=== PATIENT | male | born 1975 | race Caucasian/White ===

== ENCOUNTER 2020-08-18 12:43 | Emergency (ER) | payer SELFPAY ==
[2020-08-18] MEDS ORDERED: IBUPROFEN 800 MG TABLET PO ONE (13:44)
--- NOTE | 2020-08-18 13:50 | ER Document Report ---
ED Medical Screen (RME) - General Chief Complaint: Leg Pain Stated Complaint: LEG PAIN Time Seen by Provider: 08/18/20 13:36 TRAVEL OUTSIDE OF THE [place] IN LAST 30 DAYS: No - HPI Notes: 08/18/20 13:47 45 year old male presents to the emergency room from [facility] for evaluation of right leg swelling, warmth to touch and redness that has become progressively worse over the last 4 days. Patient denies any trauma. Reports right knee pain and right calf pain states sometimes the pain radiates to his right hip. Denies any recent surgeries, periods of immobilization with car rides or plane flights, factor V, history of blood clots, treatment for cancer. Is not tried any [id number]-[id number] medications. Reports pain is 4 out of 5, throbbing cramping and constant. Patient states he had a been on a riding lawn more for long periods of time over the weekend. Is not on any blood thinners. Denies taking any everyday medications. Patient reports he does have a history of 6 herniated disc. States he did take 1 of his 's hydrocodone and this did help with his pain. Denies any chest pain shortness of breath, nausea vomiting, fevers or chills I have greeted and performed a rapid initial assessment of this patient. A comprehensive ED assessment and evaluation of the patient, analysis of test results and completion of the medical decision making process will be conducted by additional ED providers. PHYSICAL EXAMINATION: GENERAL: Well-appearing, well-nourished and in no acute distress. CV: s1, s2 regular LUNGS: No respiratory distress Musculoskeletal: Normal range of motion. Right lower extremity distal pulses +2, scant swelling by comparison to left lower extremity. Full motor and sensory function to bilateral lower extremities equally. NEUROLOGICAL: Normal speech, normal gait. SKIN: Warm, Dry, normal turgor, no rashes or lesions noted. - Related Data Allergies/Adverse Reactions: No Known Allergies Allergy (Verified 08/18/20 13:36) Past Medical History - Social History Chew tobacco use (# tins/day): No Frequency of alcohol use: Rare Infectious Medical History: Denies: Hx MRSA - Immunizations Hx Diphtheria, Pertussis, Tetanus Vaccination: Yes - 07/2011 Physical Exam - Vital signs Vitals: Temp Pulse Resp BP Pulse Ox 98.3 F 96 16 138/69 H 98 08/18/20 13:03 08/18/20 13:03 08/18/20 13:03 08/18/20 13:03 08/18/20 13:03 Course - Vital Signs Vital signs: Temp Pulse Resp BP Pulse Ox 98.3 F 96 16 138/69 H 98 08/18/20 13:03 08/18/20 13:03 08/18/20 13:03 08/18/20 13:03 08/18/20 13:03
[2020-08-18 14:19] LABS: ABSOLUTE BASOPHILS # (AUTO) 0.1 10^3/uL (0.0-0.2); ABSOLUTE EOSINOPHILS # (AUTO) 0.6 10^3/uL (0.0-0.6); ABSOLUTE LYMPHOCYTES (AUTO) 2.7 10^3/uL (0.5-4.7); ABSOLUTE MONOCYTES (AUTO) 0.9 10^3/uL (0.1-1.4); ABSOLUTE NEUT (AUTO) 7.8 10^3/uL (1.7-8.2); BASOPHILS % (AUTO) 0.5 % (0-2); EOSINOPHILS % (AUTO) 4.9 % (0-6); HEMATOCRIT 48.4 % (37.9-51.0); HEMOGLOBIN 16.8 g/dL (13.5-17.0); LYMPHOCYTES % (AUTO) 22.3 % (13-45); MEAN CORPUSCULAR HEMOGLOBIN 30.7 pg (27.0-33.4); MEAN CORPUSCULAR HGB CONC 34.8 g/dL (32.0-36.0); MEAN CORPUSCULAR VOLUME 88 fl (80-97); MONOCYTES % (AUTO) 7.2 % (3-13); PLATELET COUNT 234 10^3/uL (150-450); RED BLOOD COUNT 5.49 10^6/uL (4.35-5.55); RED CELL DISTRIBUTION WIDTH 14.1 % (11.5-14.0); SEGMENTED NEUTROPHILS % (AUTO) 65.1 % (42-78); TOTAL CELLS COUNTED % (AUTO) 100 %
--- NOTE | 2020-08-18 14:36 | RADIOLOGY REPORT (SQ) ---
EXAM DESCRIPTION: KNEE RIGHT 4 VIEWS IMAGES COMPLETED DATE/TIME: 08/18/2020 2:27 pm REASON FOR STUDY: right knee pain x 4 days COMPARISON: None. NUMBER OF VIEWS: Four views. TECHNIQUE: AP, lateral, and both oblique radiographic images acquired of the right knee. LIMITATIONS: None. FINDINGS: MINERALIZATION: Normal. BONES: No acute fracture or dislocation. No worrisome bone lesions. No significant osteophytes. JOINT: No effusion. No chondrocalcinosis. OTHER: No other significant finding. IMPRESSION: NEGATIVE STUDY OF THE RIGHT KNEE. NO EXPLANATION FOR PAIN. TECHNICAL DOCUMENTATION: JOB ID: [id number] 2010 [employer]- All Rights Reserved Reading location - IP/workstation name: [email or web address]
[2020-08-18 14:37] LABS: ANION GAP 9 (5-19); BLOOD UREA NITROGEN 7 mg/dL (7-20); CALCIUM 9.5 mg/dL (8.4-10.2); CARBON DIOXIDE 27 mmol/L (22-30); CHLORIDE 103 mmol/L (98-107); GLUCOSE 101 mg/dL (75-110); POTASSIUM 4.7 mmol/L (3.6-5.0)
[2020-08-18] MEDS ORDERED: MORPHINE SULFATE 10 MG/ML INJ IM ONE (16:17)
[2020-08-18] MEDS ORDERED: ONDANSETRON 4 MG TAB.RAPDIS PO ONE (16:18)
--- NOTE | 2020-08-18 16:27 | ER Document Report ---
ED General - General Chief Complaint: Leg Pain Stated Complaint: LEG PAIN Time Seen by Provider: 08/18/20 13:36 Mode of Arrival: Ambulatory Information source: Patient Notes: Patient is a 45-year-old male coming in today chief complaint of atraumatic right lower extremity pain especially around his knee. States the pain is been present for the past 4 days. Sharp in nature. Worse with movement and weight-bearing. Occasional mild precordial chest pain which is intermittent and rare. No shortness of breath. No history of thromboembolic events in the past. Not have any blood dyscrasias to his knowledge. 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 No recent surgeries. No immobilization. No trauma. TRAVEL OUTSIDE OF THE [place] IN LAST 30 DAYS: No - Related Data Allergies/Adverse Reactions: No Known Allergies Allergy (Verified 08/18/20 13:36) Past Medical History - Social History Smoking Status: Current Every Day Smoker Chew tobacco use (# tins/day): No Frequency of alcohol use: Rare Family History: Arthritis, CAD, CVA, Hyperlipidemia, Hypertension Patient has homicidal ideation: No Infectious Medical History: Denies: Hx MRSA - Immunizations Hx Diphtheria, Pertussis, Tetanus Vaccination: Yes - 07/2011 Review of Systems - Review of Systems Notes: Constitutional: No fevers. No chills. EENT: No eye redness. No eye pain. No ear pain. No sore throat. Cardiovascular: Positive rare, intermittent chest pain. No palpitations. Respiratory: No cough. No shortness of breath. No respiratory distress. Gastrointestinal: No abdominal pain. No nausea, vomiting, or diarrhea. Genitourinary: Atraumatic. No lesions. No pain. No discharge. Musculoskeletal: Positive for swelling and pain in the right lower extremity Skin: No rash or lesions. Lymphatic: No swollen lymph nodes. Neurologic: No headache. No syncope. Psychiatric: No suicidal or homicidal ideation. Physical Exam - Vital signs Vitals: Temp Pulse Resp BP Pulse Ox 98.3 F 96 16 138/69 H 98 08/18/20 13:03 08/18/20 13:03 08/18/20 13:03 08/18/20 13:03 08/18/20 13:03 - Notes Notes: General: Well-developed, well-nourished. In no acute distress. Non-toxic appearing. Cardiac: Well-perfused. Regular rate and rhythm. No murmurs, rubs, or gallops. Pulmonary: No respiratory distress. No cyanosis. Bilateral lung fiels are clear to auscultation. Abdominal: Non-distended. Non-rigid. Bowels sounds are present in all four quadrants. No guarding or rebound. HEENT: Head is atraumatic. Conjunctivae not reddened. No tearing. PERRL. EOMI. Orbits atraumatic. No periorbital swelling or erythema. Oropharynx is without erythema, swelling, or exudates. Neck: Supple. No adenopathy. No meningismus. Dermatologic: Warm with good turgor. No rash. Atraumatic. Chest: Atraumatic. No chest wall tenderness to palpation. Musculoskeletal: There is moderate swelling from the right knee through the right tib-fib region. Calf is tender to minimal squeeze. Dorsalis pedis pulse is palpable. Genitourinary: Examination deferred Neurologic: No gross neurologic deficits. Psychiatric: Normal mood. Course - Re-evaluation Re-evalutation: 08/18/20 16:27 Wet read of the ultrasound study shows a deep vein thrombosis from the popliteal through posterior tibial vein. Patient has been having intermittent pains in his chest. We will CTA him to rule out PE. Coags ordered just in case heparin is needed in the future. 08/18/20 17:44 Spoke with the patient. Feeling better after meds. He still has quite a bit of IV fluid left from the 2 L bolus. Labs are still pending. Will review labs on they get back. Hopefully by then the fluids will be done infusing. Anticipate we will discharge this patient home 08/18/20 18:32 Case was discussed with Dr. Mcgregor regarding the pulmonary emboli as well as the DVT. He suggested I call the hospitalist to see if this was somebody who would need hospital admission. Dr Dillard states that the patient can go home on Eliquis. States patient does not need to be inpatient to have heme onc consult. She says this can take place as an outpatient. Patient is hemodynamically stable. Troponin and BNP are both normal indicating no heart strain. I have discussed the plan with the patient at length. We will give him his first dose of Eliquis and a free 30-day starter pack with a prescription. We will give him Dr. Kraft to follow-up with as an outpatient. The social media marketing manager will make contact with him tomorrow to work on getting him set up for the lower cost Eliquis after his 30 days run out. 08/18/20 18:57 - Vital Signs Vital signs: Temp Pulse Resp BP Pulse Ox 98.3 F 96 14 138/69 H 96 08/18/20 13:03 08/18/20 13:03 08/18/20 16:18 08/18/20 13:03 08/18/20 17:05 - Laboratory Result Diagrams: 08/18/20 13:56 08/18/20 13:56 Laboratory results interpreted by me: 08/18/20 13:56 WBC 12.0 H RDW 14.1 H - Diagnostic Test Radiology reviewed: Reports reviewed - EKG Interpretation by Me EKG shows normal: Sinus rhythm Rate: Normal Rhythm: NSR Additional EKG results interpreted by me: 08/18/20 18:[address] elevations or depressions Discharge - Discharge Clinical Impression: Bilateral pulmonary embolism, Elevated blood pressure reading Right leg DVT Qualifiers: Affected thrombotic vein of extremity: popliteal Chronicity: acute Qualified Code(s): I82.431 - Acute embolism and thrombosis of right popliteal vein Condition: Good Disposition: HOME, SELF-CARE Instructions: DVT Outpatient Treatment ([facility]) Additional Instructions: As we discussed, you will get your first dose of Eliquis tonight. You will go to the pharmacy tomorrow and fill your first 30-day prescription. Use the coupon to get it for free. You will take 10 mg of Eliquis twice a day for the first 7 days. Then you will take 5 mg twice a day from there on. You need to make an appointment with Dr. Vin Kraft to follow-up for your blood clots. The phone number is listed in this paperwork. Please make note of the risks of internal bleeding. Always come to the emergency department if you have significant injury as you may need to be tested to make sure that you are not bleeding excessively. Prescriptions: Apixaban [Eliquis 5 mg Tablet] 5 mg PO BID 28 Days #70 tablet Forms: Elevated Blood Pressure
[2020-08-18 16:35] LABS: INTERNATIONAL RATION (INR) 0.97; PARTIAL THROMBOPLASTIN TIME 30.2 SEC (23.5-35.8); PROTHROMBIN TIME 13.1 SEC (11.4-15.4)
--- NOTE | 2020-08-18 16:45 | RADIOLOGY REPORT (SQ) ---
EXAM DESCRIPTION: VENOUS UNILATERAL LOWER IMAGES COMPLETED DATE/TIME: 08/18/2020 4:02 pm REASON FOR STUDY: right leg calf pain, swelling x 4d COMPARISON: None. TECHNIQUE: Dynamic and static dickinson scale and color images acquired of the right leg venous system. S elected spectral images acquired with additional compression and augmentation maneuvers. The contrala teral common femoral vein and saphenofemoral junction were also imaged. Images stored on PACS. LIMITATIONS: None. FINDINGS: COMMON FEMORAL: Normal phasicity, compression and augmentation. No visualized echogenic ma terial on dickinson scale. No defects on color images. FEMORAL: Normal compression and augmentation. No visualized echogenic material on dickinson scale. No defe cts on color images. POPLITEAL: Acute occlusive thrombus. CALF VESSELS: Acute occlusive thrombus in the posterior tibial vein. GSV and SSV: Normal compression, augmentation. No visualized echogenic material on dickinson scale. No def ects on color images. ANY DEEP VENOUS INSUFFICIENCY: Not evaluated. ANY EVIDENCE OF POPLITEAL CYST: No. OTHER: No other significant finding. CONTRALATERAL COMMON FEMORAL VEIN AND SAPHENOFEMORAL JUNCTION: Normal phasicity, compression and augmentation. No visualized echogenic material on dickinson scale. No de fects on color images. IMPRESSION: DEEP VENOUS THROMBOSIS IN THE POPLITEAL VEIN AND POSTERIOR TIBIAL VEIN. COMMENT: Preliminary report was called by the technologist to the referring clinician's office at th e time of the exam. TECHNICAL DOCUMENTATION: JOB ID: [id number] 2010 [employer]- All Rights Reserved Reading location - IP/workstation name: [email or web address]
--- NOTE | 2020-08-18 17:40 | RADIOLOGY REPORT (SQ) ---
EXAM DESCRIPTION: CTA CHEST IMAGES COMPLETED DATE/TIME: 08/18/2020 5:06 pm REASON FOR STUDY: dvt rle. pleuritic cp COMPARISON: None. TECHNIQUE: CT scan of the chest performed using helical scanning technique with dynamic intravenous contrast injection. Images reviewed with lung, soft tissue and bone windows. Reconstructed coronal and sagittal MPR images reviewed. Additional 3 dimensional post-processing performed to develop Maximal Intensity Projection images (ME P). All images stored on PACS. All CT scanners at this facility use dose modulation, iterative reconstruction, and/or weight based d osing when appropriate to reduce radiation dose to as low as reasonably achievable (ALARA). [facility]: Dose Right [facility]: CareDose [facility]: Dose Right [facility]: Teradose 4D [facility]: Jobspot CONTRAST TYPE AND DOSE: contrast/concentration: Isovue 350.00 mmol/ml; Total Contrast Delivered: 75. 0 ml; Total Saline Delivered: 46.1 ml Contrast bolus optimized for the pulmonary arteries. Not diagnostic for the aorta. RENAL FUNCTION: Creatinine - 0.85 RADIATION DOSE: CT Rad equipment meets quality standard of care and radiation dose reduction techniq ues were employed. CTDIvol: 19.8 - 34.8 mGy. DLP: 1391 mGy-cm. . LIMITATIONS: None. FINDINGS: LUNGS AND PLEURA: A 9-10.0 mm nodule in the right middle lobe, axial image 61, series 4. A smaller 6-7 mm pleural base nodule at the right lower lobe, axial image 45, series 4. An 8 mm nod ule in the left upper lobe, axial image 24, series 4. Small 5 mm nodule in the left lower lobe, axia l image 53, series 4. Dependent mild atelectatic changes in the lower lobes. No pneumothorax or ple ural effusion. The central airways are clear. AORTA AND GREAT VESSELS: No aneurysm. Contrast bolus not optimized for the aorta. HEART: No pericardial effusion. No significant coronary artery calcifications. PULMONARY ARTERIES: Filling defects are identified in the segmental and subsegmental branches of the pulmonary arteries bilaterally representing acute pulmonary emboli. No emboli visualized in the jonathan n pulmonary arteries. HILAR AND MEDIASTINAL STRUCTURES: Intrathoracic herniation of fat into the midline posterior mediast inum. Small hiatal hernia. Borderline to mildly prominent mediastinal and hilar lymph nodes. HARDWARE: None in the chest. UPPER ABDOMEN: No significant findings. Limited exam. THYROID AND OTHER SOFT TISSUES: The visualized thyroid gland is heterogenous in appearance. BONES: No acute or significant finding. 3D MIPS: Confirm above findings. OTHER: No other significant finding. IMPRESSION: 1. Filling defects are identified in the segmental and subsegmental branches of the pul monary arteries bilaterally, represent acute pulmonary emboli. No emboli visualized in the main pulm onary arteries. 2. Bilateral pulmonary nodules. A follow-up CT chest examination without IV contrast in 3 months. 3. Borderline to mildly prominent mediastinal and hilar lymph nodes. 4. Additional findings as above. COMMENT: 1. The results of this examination were discussed with emergency department provider on at 17:28 hours. Quality ID # [id number]: Final reports with documentation of one or more dose reduction techniques (e.g., Au tomated exposure control, adjustment of the mA and/or kV according to patient size, use of iterative reconstruction technique) TECHNICAL DOCUMENTATION: JOB ID: [id number] 2010 [employer] [facility] [employer]- All Rights Reserved Reading location - IP/workstation name: [id number]
[2020-08-18 18:13] LABS: NT PRO BNP 46 pg/mL (<125)
[2020-08-18 18:15] LABS: TROPONIN I < 0.012 ng/mL
[2020-08-18] MEDS ORDERED: APIXABAN 5 MG TABLET PO ONE (18:36)
[2020-08-18 19:18] VITALS: BP 139/92
--- NOTE | 2020-08-19 15:16 | EKG REPORT ---
SEVERITY:- NORMAL ECG - SINUS RHYTHM : Confirmed by: Britt Casillas MD 19-Aug-2020 15:15:35
== END 2020-08-18 19:18 | disposition home or self-care (01) ==
LOC: ER 12:43
DX: I82.431 Acute embolism and thrombosis of right popliteal vein (principal); I26.99 Other pulmonary embolism without acute cor pulmonale; R07.2 Precordial pain; M79.604 Pain in right leg; R03.0 Elevated blood-pressure reading, without diagnosis of hypertension; F17.210 Nicotine dependence, cigarettes, uncomplicated
CPT/HCPCS: 93005; 99285; 96372; 36415; 85025; 85610; 85730; 80048; 84484; 83880; 93971; 73564; 71275; 93010; S0119; J2270